=== PATIENT | male | born 1965 | race Caucasian/White ===

== ENCOUNTER 2017-10-09 08:18 | Emergency (ER) | payer MEDICAID ==
[~2017-10-09] VITALS: Ht 180.3 cm; Wt 99.8 kg
[~2017-10-09 08:18] MED LIST: ACHD5005 PO; BENZ100C18 PO; CALC400T8 PO; DOXY100C2 PO; TRAM50TA2 PO
[2017-10-09] MEDS ORDERED: METF500T8 (08:35)
[2017-10-09] MEDS ORDERED: CYCL10TA9 (08:35)
[2017-10-09] MEDS ORDERED: LISI10TA2 (08:35)
[2017-10-09] MEDS ORDERED: ASPI-983 (08:35)
[2017-10-09] MEDS ORDERED: ATOR20TA66 (08:35)
[2017-10-09] MEDS ORDERED: TRAM50TA2 (08:35)
[2017-10-09] MEDS ORDERED: EMPA25TA (08:35)
[2017-10-09] MEDS ORDERED: AMOXICILLIN 500 MG (POLYMOX) CAP PO STA (08:52)
--- NOTE | 2017-10-09 08:59 | ED EENT ---
History of Present Illness General Chief Complaint: Oral/Throat Problems Stated Complaint: SORE THROAT Nursing Triage Note: ARRIVED VIA AMB TO ROOM 06 WITH COMPLAINTS OF SORETHROAT STARTING YESTERDAY. Source: patient Exam Limitations: no limitations History of Present Illness Date Seen by Provider: Oct 09, 2017 Time Seen by Provider: 08:40 Initial Comments Here with report of sore throat and pain with swallowing. Denies fever or chills. Denies cough. Does have ear fullness on the right side. Feels like there is some swelling in his throat. Onset yesterday and worsened today. Denies nausea and vomiting. Timing/Duration: gradual, yesterday Severity: moderate Location: ear (R), throat Prearrival Treatment: no prearrival treatment Associated Symptoms: No cough, No ear drainage, No facial pain/swelling, No fever; nasal congestion/drainage, sore throat Allergies and Home Medications Allergies Coded Allergies: No Known Drug Allergies (Unverified , 07/15/12) Home Medications Amoxicillin 500 Mg Capsule, 500 MG PO TID Prescribed by: GONZÁLEZ AMBRIZ on 10/09/17 0902 Patient Home Medication List Home Medication List Reviewed: Yes Review of Systems Constitutional: see HPI Eyes: No Symptoms Reported Ears: See HPI, Pain Nose: see HPI, congestion Mouth: no symptoms reported Throat: see HPI, pain, swelling; denies neck stiffness; painful swallowing; denies difficulty with fluids Respiratory: no symptoms reported Cardiovascular: no symptoms reported Gastrointestinal: no symptoms reported Past Ewqfsqt-Drjhjv-Msnbyl Hx Past Med/Social Hx: Reviewed Nursing Past Med/Soc Hx Patient Social History Alcohol Use: Denies Use Recreational Drug Use: No Smoking Status: Current Everyday Smoker Recent Foreign Travel: No Contact w/Someone Who Travel: No Recent Infectious Disease Expo: No Past Medical History Surgeries: Yes (FOOT) Respiratory: No Cardiac: Yes High Cholesterol Neurological: No Genitourinary: No Gastrointestinal: Yes Hiatal Hernia Musculoskeletal: Yes Degenerate Disk Disease, Arthritis Endocrine: Yes Diabetes, Non-Insulin dep HEENT: No Glaucoma Cancer: No Psychosocial: Yes Depression Integumentary: No Blood Disorders: No Adverse Reaction/Blood Tranf: No Family Medical History Reviewed Nursing Family Hx No Pertinent Family Hx Physical Exam Vital Signs Vital Signs - First Documented 10/09/17 08:21 Temp 97.3 Pulse 90 Resp 16 B/P (MAP) 155/113 (127) Pulse Ox 96 O2 Delivery Room Air General Appearance: WD/WN, no apparent distress Eyes: bilateral eye normal inspection, bilateral eye PERRL, bilateral eye EOMI Ears: right ear TM bulging; left ear TM normal; bilateral ear auricle normal, bilateral ear canal normal Nose: other (mild bilateral congestion) Mouth/Throat: pharynx swelling, pharynx tenderness; No tongue swollen, No tonsillar exudate; tonsillar swelling; No trismus; uvula swelling; No voice changes Neck: full range of motion, supple, lymphadenopathy (R), lymphadenopathy (L) Cardiovascular: regular rate, rhythm, no murmur Respiratory: lungs clear, normal breath sounds Gastrointestinal: non tender, soft Neurologic/Psychiatric: alert, oriented x 3 Skin: normal color, warm/dry Progress/Results/Core Measures Results/Orders Lab Results Laboratory Tests Test 10/09/17 08:50 Range/Units Group A Streptococcus Screen NEGATIVE NEGATIVE My Orders Orders - GONZÁLEZ AMBRIZ MD Rapid Strep A Screen (10/09/17 08:52) Amoxicillin Capsule (Polymox Capsule) (10/09/17 08:52) Dexamethasone Injection (Decadron Inject (10/09/17 09:00) Medications Given in ED Current Medications Medications Dose Ordered Sig/Eugenio Route Start Time Stop Time Status Last Admin Dose Admin Dexamethasone Sodium Phosphate 10 mg ONCE ONCE IM 10/09/17 09:00 10/09/17 09:01 DC 10/09/17 09:15 10 MG Vital Signs/I&O 10/09/17 08:21 Temp 97.3 Pulse 90 Resp 16 B/P (MAP) 155/113 (127) Pulse Ox 96 O2 Delivery Room Air Blood Pressure Mean: 127 Progress Progress Note : Progress Note Seen and evaluated. Rapid strep and culture ordered. Amoxicillin 1 g by mouth and Decadron 10 mg IM ordered. Discharged home with return precautions. Patient verbalize understanding instructions and agreement with plan. Departure Impression Primary Impression: Pharyngitis, acute Qualified Codes: J02.9 - Acute pharyngitis, unspecified Additional Impression: Otalgia of right ear Disposition: HOME, SELF-CARE Condition: Stable Departure-Patient Inst. Decision time for Depature: 08:59 Referrals: FELIPE RICHARDSON DO (PCP/Family) Primary Care Physician Patient Instructions: Strep Throat (DC) Add. Discharge Instructions: All discharge instructions reviewed with patient and/or family. Voiced understanding. Take medications as directed. Follow-up with your Dr. in a few days for recheck. Return for worse pain, fever, vomiting, weakness, breathing problems or other concerns as needed. You may take ibuprofen 600 mg every 8 hours as needed for pain. You may take Tylenol/acetaminophen 1000 mg every 8 hours as needed for pain. You may use Afrin nasal spray or the generic, 12 hour relief, 2 sprays each nostril twice daily for 3 days only and then stop. Do not use for more than 3 days. Scripts Amoxicillin (Amoxicillin) 500 Mg Capsule 500 MG PO TID, #21 CAP 0 Refills Prov: GONZÁLEZ AMBRIZ MD 10/09/17 GONZÁLEZ AMBRIZ MD Oct 09, 2017 08:59
[2017-10-09] MEDS ORDERED: DEXAMETHASONE 10 MG/ML (DECADRON) 1 ML VIAL IM ONE (09:00)
[2017-10-09] MEDS ORDERED: AMOX500C2 PO (09:02)
[2017-10-09 09:30] VITALS: BP 155/113
== END 2017-10-09 09:30 | disposition home or self-care (01) ==
LOC: EDUNIT# 08:18 → ER 08:21
DX: J02.9 Acute pharyngitis, unspecified (principal); H92.01 Otalgia, right ear; E78.00 Pure hypercholesterolemia, unspecified; F32.9 Major depressive disorder, single episode, unspecified; E11.9 Type 2 diabetes mellitus without complications; F17.200 Nicotine dependence, unspecified, uncomplicated; Z87.19 Personal history of other diseases of the digestive system
CPT/HCPCS: 87430; 96372; 99284